=== PATIENT | female | born 1990 | race Caucasian/White ===

== ENCOUNTER 2017-09-13 09:00 | Inpatient (IN) ==
[2017-09-13] MEDS ORDERED: *HR* Nalbuphine 20 MG/ML AMPUL IVP PRN (09:54)
[2017-09-13] MEDS ORDERED: Ondansetron 4 MG/2 ML VIAL IVP PRN (09:54)
[2017-09-13] MEDS ORDERED: Famotidine 20 MG/2 ML VIAL IVP PRN (09:54)
[2017-09-13] MEDS ORDERED: Naloxone 0.4 MG/ML INJ IVP PRN (09:54)
[2017-09-13] MEDS ORDERED: Ringers Solution, Lactated 1,000 ML IVC SCH (10:00)
[2017-09-13] MEDS ORDERED: Oxytocin 20 units/ LR 1000 mL 20 UNIT/1,000 ML BAG IVC SCH ×2 (10:00→23:32)
--- NOTE | 2017-09-13 11:30 | OB/GYN History & Physical ---
Date of Encounter: 09/13/17 Time of Encounter: 11:28 Assessment and Plan (1) Post term at 41 weeks gestation Current visit: Yes Status: Acute Admitted for IOL at 41w5d. GBS negative. Plan for nipple stimulation at this time. Will consider AROM. Medication for IOL as last resort. Intermittent auscultation monitoring at this time. Anticipate . (2) Non-stress test reactive Current visit: Yes Status: Acute FHR 140 bpm moderate variability, +15x15 accels, no decels, moderate variability. History of Present Illness Chief complaint: IOL at 41w5d HPI: Ms. Taylor is a 27 year old female at 41w5d who arrived for IOL due to post -date . She reports active movement, denies bleeding and leakage of fluid. Pt reports irregular contractions, feels light cramping with them. Patient desires a natural , intermittent monitoring if possible. Would like the least invasive and most natural induction possible. Discussed IOL options with patient, AROM, Cytotec, Pitocin, and nipple stimulation. At this time, she would like to attempt nipple stimulation to induce labor. Requests to re-evaluate in one hour and make further IOL plans at that time. Cervical exam unchanged from 2 days ago. Blood type O+ GBS negative HbSAG negative Rubella Immune Varicella Immune T. Pallidum negative Past Med Surg Social Fam HX - Past Medical History Source: patient Medical history: non-contributory Psychiatric history: no psych history - Past Surgical History Surgical History: other (Finger surgery at 10 years old) - Social History Smoking Status: Never smoker Smokeless Tobacco Status: No Alcohol use: none Drug use: none Current living situation: Home - Independent Activity Level: Independent ambulation Recent Out of Country Travel Within the Last 8 Weeks: No Exposure or Possible Exposure to Illness During Travel: No - Family History Mother Name: Maritza Age: 54 Living Status: Still Living Hx Family Cardiac Disorders: No Hx Family Respiratory Disorders: No Hx Family Cancer: No Hx Family GI Disorders: No Hx Family Genitourinary Disorders: No Hx Family Endocrine Disorder: No Hx Family Musculoskeletal Disorders: No Hx Family Neuromuscular Disorders: No Hx Family Neurologic Disorders: No Hx Family HEENT Disorders: No Hx Family Autoimmune Disorders: No Hx Family Reproductive Disorders: No Hx Family Psychosocial Disorders: No Hx Family Medical Disorders: No Obstetrical History - Pregnancies : 3 Para: 2 Term: 2 : 0 Ab's: 0 Livin Medications and Allergies Amoxicillin 875 mg PO BID #20 tablet 09/07/17 [Rx] Review of System OB All systems PM: reviewed and no additional remarkable complaints except as stated Exam - Vital Signs Vital signs: Initial Vital Signs Temp Pulse Resp BP 97.5 F L 96 16 117/73 09/13/17 10:21 09/13/17 10:21 09/13/17 10:21 09/13/17 10:21 - Constitutional Constitutional: well developed, well nourished, no acute distress - Neck Neck exam: full ROM, normal inspection - Lungs Respiratory exam: CTAB - Cardiovascular Cardiovascular exam: RRR, +S1, +S2 - Breasts Breast: bilateral: normal - Abdomen Abdomen: Present: bowel sounds normal, gravid, non tender - Extremities Extremities exam: full ROM, normal capillary refill, normal inspection, warm - Vulva Vulva: bilateral: normal - Vagina Vagina: Present: normal moisture - Cervix Dilation: 4 Effacement: 80 Station: -1 - Uterus Uterus exam: Present: normal size, normal contour - Comments Comments: FHR 140 bpm, moderate variaibility, + 15x15 accels, no decels. Category I tracing. Irregular contractions noted. Pt reports mild cramping. Results All other labs normal. - VTE Reasons for not Prescribing Prophylaxis: Treatment not Indicated - Low risk for VTE
[2017-09-13 11:32] LABS: Basophils % 0.2 %; Eosinophils % 0.1 %; Hematocrit 37.7 % (35.3-44.9); Hemoglobin 12.9 g/dL (11.5-15.4); Immature Granulocytes % 0.7 % (0-4); Lymphocytes # 1.6 K/mcL (0.6-4.6); Lymphocytes % 14.2 %; Mean Corpuscular HGB Conc 34.2 g/dL (31.6-35.5); Mean Corpuscular Volume 90.6 fL (83.0-100.0); Mean Platelet Volume 10.6 fL (9.4-12.4); Monocytes # 0.7 K/mcL (0.0-1.3); Neutrophils # 8.6 K/mcL (1.6-8.9); Platelet Count 150 K/mcL (140-400); Red Blood Count 4.16 M/mcL (3.82-4.97); Red Cell Distribution Width 12.1 % (11.5-14.5); Segmented Neutrophils % 78.8 %
--- NOTE | 2017-09-13 12:56 | OB Labor Progress Note ---
Date of Encounter: 09/13/17 Time of Encounter: 12:54 Labor Progress Note - Subjective Subjective: Pt comfortable at this time. She feels contractions but they are not painful. - Cervix Cervix: 4/80/-1 - Heart Tones Heart Tones: FHT 145-150 - [place]: Pt reports contractions every 4-5 minutes - Interventions Interventions: Mueller balloon placed in cervix. Balloon inflated with 60ml sterile water. Pt tolerated well. - Plan Plan: COntinue to monitor. ANticpate .
--- NOTE | 2017-09-13 14:54 | OB Labor Progress Note ---
Date of Encounter: 09/13/17 Time of Encounter: 14:51 Labor Progress Note - Subjective Subjective: Patient resting comfortably, feels contractions yet not painful. Mueller balloon fell out during urination. - Cervix Cervix: 6, 80, -1 - Heart Tones Heart Tones: FHR 140, moderate variability, 15x15 accelerations - [place]: contractions q2-4 minutes, irregular. - Interventions Interventions: AROM with moderate amount of clear fluid. - Plan Plan: Continued labor management with intermittent monitoring. Anticipate
--- NOTE | 2017-09-13 19:24 | OB Labor Progress Note ---
Date of Encounter: 09/13/17 Time of Encounter: 19:22 Labor Progress Note - Subjective Subjective: Pt reports mild to moderate discomfort with contractions. - Heart Tones Heart Tones: Category I - Plan Plan: Pt considering augmentation of labor at this time. Will perform SVE when pt is ready.
--- NOTE | 2017-09-13 23:20 | OB/GYN Procedure Note ---
Delivery - Delivery Date: 09/13/17 Provider: Kesha Zavala Intrapartum events: none Delivery induction: iraheta Delivery augmentation: rupture of membranes, pitocin Delivery monitor: external FHT, external uterine Anesthesia: none Estimated Blood Loss: 300 - Infant (s) A Delivery Date: 09/13/17 Delivery Time: 22:47 Presentation: vertex, compound (left hand) Position: SAMI Route of delivery: Gender: Male Viability: Viable Pounds: 9 Ounces: 3 Weight Gram: 4165 kg at 1 minute: 8 at 5 mins: 9 Shoulder Dystocia: not encountered Specimens collected: cord blood Placenta: spontaneous Cord: nuchal cord, 3 umbilical vessels, delivered through nuchal - Repair Episiotomy: none Laceration Description: None - Complications Delivery complications: none Delivery comments: Pt pushed effectively to for viable male weighing 9lbs. 3oz. with apgars 8 at one minute and 9 at five minutes. After a 4 minute delay the cord was clamped and cut and the placenta delivered spontaneous and intact. No lacerations noted. EBL 300ml. Mother and baby stable in kangaroo care following procedure. - Disposition Mom disposition: stable in LDR disposition: stable in LDR
[2017-09-13] MEDS ORDERED: Lanolin 7 G OINT...G. TP PRN (23:32)
[2017-09-13] MEDS ORDERED: Acetaminophen 325 MG TABLET PO PRN (23:32)
[2017-09-13] MEDS ORDERED: Measles/Mumps/Rubella Vacc 0.5 ML VIAL SQ PRN (23:32)
[2017-09-14] MEDS: Ibuprofen 600 MG TABLET PO PRN ×2 (00:37→07:11)
[2017-09-14] MEDS ORDERED: Prenatal Vit/FA 1 EACH TABLET PO SCH (09:00)
--- NOTE | 2017-09-14 09:08 | OB/GYN Progress Note ---
Date of Encounter: 09/14/17 Time of Encounter: 09:05 - Assessment and Plan (1) Vaginal delivery Current Visit: Yes Status: Acute Patient with no acute complaints, minimal lochia, and no troubles urinating or ambulating. -Patient meeting all milestones -Potential DC this evening or tomorrow morning. (2) Post term at 41 weeks gestation Current Visit: Yes Status: Acute Subjective - Subjective Principal diagnosis: Spontaneous Vaginal Delivery Interval history: 27-year-old female status post spontaneous vaginal delivery to a viable male . Patient is resting comfortably this morning. Baby is breast- feeding well. Patient states she is having minimal lochia with minimal clots. She denies bleeding heavily. She does report some mild contractions during nursing. Patient denies any nausea, vomiting, headache, visual disturbances. Patient reports: appetite normal, voiding normally, pain well controlled, ambulating normally : doing well, nursing well Objective - Latest Vital Signs Latest vital signs: Vital Signs Temp Pulse Resp BP Pulse Ox 09/14/17 07:30 98.4 F 75 12 118/68 98 09/14/17 02:45 97.5 F L 81 14 114/77 100 09/14/17 01:47 97.8 F 84 14 113/73 99 09/13/17 10:21 97.5 F L 96 16 117/73 Intake and Output 09/13/17 09/14/17 09/14/17 23:59 07:59 15:59 Output Total 1300 / 1300 Balance -1300 / -1300 Output: Urine 1300 / 1300 - Exam Lungs: bilateral: normal Chest: Normal S1, Normal S2 Extremities: Present: normal. Absent: edema Abdomen: Present: normal appearance, soft. Absent: tenderness Uterus: Present: normal, firm Uterus Position: At Umbilicus, Midline - Labs Labs: Laboratory Results - last 24 hr 09/13/17 11:20 WBC 10.9 RBC 4.16 Hgb 12.9 Hct 37.7 MCV 90.6 MCH 31.0 MCHC 34.2 RDW 12.1 Plt Count 150 MPV 10.6 Immature Gran % 0.7 Seg Neutrophils % 78.8 Lymphocytes % 14.2 Monocytes % 6.0 Eosinophils % 0.1 Basophils % 0.2 Neutrophils # 8.6 Lymphocytes # 1.6 Monocytes # 0.7 Eosinophils # 0.0 Basophils # 0.0
[2017-09-14] MEDS: *HR* HYDROcodone/Acet 5/325 mg TABLET PO PRN ×3 (09:27→21:50)
--- NOTE | 2017-09-14 12:37 | Discharge Summary ---
Date of Encounter: 09/14/17 Time of Encounter: 12:35 - Discharge Diagnosis (1) Breast feeding status of mother Priority: Secondary Status: Acute Comments: support prn (2) Vaginal delivery Priority: Primary Status: Acute Comments: continue routine care discharge home today per patient request - Discharge Medications Prescriptions: HYDROcodone/Acet 5/325 mg [Zuni 5-325 mg] 1 tab PO Q6HR PRN #5 tablet PRN Reason: Pain Ibuprofen [Motrin] 600 mg PO Q6HR PRN #60 tablet PRN Reason: Cramping Home Medications: Amoxicillin 875 mg PO BID #20 tablet 09/07/17 [Rx] HYDROcodone/Acet 5/325 mg [Zuni 5-325 mg] 1 tab PO Q6HR PRN #5 tablet 09/14/17 [Rx] Ibuprofen [Motrin] 600 mg PO Q6HR PRN #60 tablet 09/14/17 [Rx] Lanolin [Lansinoh] 1 appl TP Q4HR PRN oint...g. 09/14/17 [Rx] Vit/FA 1 each PO DAILY tablet 09/14/17 [Rx] Allergies/Adverse Reactions: 3 Allergy/AdvReac Type Severity Reaction Status Date / Time No Known Allergies Allergy Verified 09/13/17 20:21 Data Procedures and tests throughout hospitalization: Laboratory Tests 09/13/17 11:20 WBC 10.9 RBC 4.16 Hgb 12.9 Hct 37.7 MCV 90.6 MCH 31.0 MCHC 34.2 RDW 12.1 Plt Count 150 MPV 10.6 Immature Gran % 0.7 Seg Neutrophils % 78.8 Lymphocytes % 14.2 Monocytes % 6.0 Eosinophils % 0.1 Basophils % 0.2 Neutrophils # 8.6 Lymphocytes # 1.6 Monocytes # 0.7 Eosinophils # 0.0 Basophils # 0.0 Date of admission: 09/13/17 09:15 Primary care physician: PCP NONE Consults: 09/13/17 23:32 Consult to Management Information Systems Director [CONS] Routine Comment: Vaginal delivery, consult needed Discharging clinician: Ami Acuña Anticipated date of discharge: 09/14/17 - Patient Status Disposition: Home, Self-Care Condition: Good Functional capacity at discharge: independent ambulation - Discharge Instructions Follow Up With: NONE,PCP [Primary Care Provider] - Kesha Zavala CNM [Non-Partnered Physician] - - Diet and Activity Activity: increase activity as tolerated Diet: regular diet Hospital Course Reason for admission: induction of labor Delivery: Episiotomy: none Laceration: none Other procedures: none complications: none Discharge diagnosis: IUP at term delivered, post term preg-delivered baby: male (breast feeding) Time Attestation: Total time spent providing and/or coordinating discharge services: Time Spent: Greater than 30 minutes Exam - Constitutional Vitals: Temp Pulse Resp BP Pulse Ox 98.4 F 75 12 118/68 98 09/14/17 07:30 09/14/17 07:30 09/14/17 07:30 09/14/17 07:30 09/14/17 07:30
[2017-09-14 15:18] VITALS: BP 118/75
== END 2017-09-14 22:42 | disposition home or self-care (01) | DRG 560 ==
LOC: 1NENULAB 09:15 → 1NENUOBS 09-14 01:43
PROVIDERS: ADMIT Registered Nurse; ATTEND Registered Nurse